=== PATIENT | female | born 1990 ===

== ENCOUNTER 2017-09-05 21:04 | Emergency (ER) | payer SELFPAY ==
[2017-09-05 21:13] VITALS: BP 129/90; RESP 16; O2SAT 100
[2017-09-05 21:16] VITALS: BMI 29.2
[2017-09-05 21:38] VITALS: PULSE 89; TEMP 98.9
[2017-09-05] MEDS ORDERED: Albuterol-Ipratrop 3 mg / 0.5 (3 ml) UD IH STA (21:44)
--- NOTE | 2017-09-05 21:48 | ED PDOC ---
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 Patient states discharge associated with "foul smell", and with suprapubic discomfort. Patient states she had an IUD placed in [employer] 4 years ago and is unsure if it has shifted. Patient also complaining of asthma exacerbation x 10 days; states little relief with inhaler. Denies fever, vomiting, chest pain, shortness of breath, palpitations, changes in bowel movements, dysuria, hematuria, vaginal bleeding. Patient states she has not been sexually active in >1 year. Past Medical History Reviewed: Historical Data, Nursing Documentation, Vital Signs Vital Signs: Last Vital Signs Temp 98.9 F 09/05/17 21:12 Pulse 89 09/05/17 21:12 Resp 16 09/05/17 21:12 BP 129/90 09/05/17 21:12 Pulse Ox 100 09/05/17 21:12 - Medical History PMH: No Chronic Diseases - Surgical History Surgical History: No Surg Hx - Family History Family History: States: No Known Family Hx - Home Medications Home Medications: Ambulatory Orders Medication Instructions Recorded Naproxen [Naprosyn] 500 mg PO Q12 PRN #20 tablet 09/05/17 predniSONE [Prednisone] 60 mg PO DAILY #12 tab 09/05/17 - Allergies Allergies/Adverse Reactions: Allergies Allergy/AdvReac Type Severity Reaction Status Date / Time No Known Allergies Allergy Verified 09/05/17 21:26 Review of Systems ROS Statement: Except As Marked, All Systems Reviewed And Found Negative Respiratory: Positive for: Cough, Wheezing Genitourinary Female: Positive for: Vaginal Discharge, Pelvic Pain Physical Exam - Reviewed Nursing Documentation Reviewed: Yes Vital Signs Reviewed: Yes - Physical Exam Appears: Positive for: Well, Non-toxic, No Acute Distress Head Exam: Positive for: ATRAUMATIC, NORMAL INSPECTION, NORMOCEPHALIC Skin: Positive for: Normal Color Eye Exam: Positive for: Normal appearance ENT: Positive for: Normal ENT Inspection Cardiovascular/Chest: Positive for: Regular Rate, Rhythm Respiratory: Positive for: Wheezing. Negative for: Accessory Muscle Use, Rhonchi, Respiratory Distress Gastrointestinal/Abdominal: Positive for: Bowel Sounds, Soft, Tenderness ( suprapubic) Pelvic Exam: Positive for: External Exam Normal, No Cerv. Motion Tender, Other ( clear, nonodorous discharge. IUD string noted from cervix. 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 Negative for: Active Bleeding, Blood, Cervicitis Back: Positive for: Normal Inspection Extremity: Positive for: Normal ROM Neurologic/Psych: Positive for: Alert, Oriented - Laboratory Results Urine POC: Negative Urine dip results: Positive for: Leukocyte Esterase - ECG O2 Sat by Pulse Oximetry: 100 - Progress ED Course And Treament: genital cultures, u/s, duoneb, prednisone EXAM: US Pelvis, Transvaginal CLINICAL HISTORY: 26 years old, female; Pain; Pelvic pain; Additional info: Pelvic pain, has iud TECHNIQUE: Real-time transvaginal pelvic ultrasound (complete) with image documentation. Transvaginal imaging was used for better evaluation of the endometrium and adnexa. COMPARISON: No relevant prior studies available. FINDINGS: Uterus/cervix: Retroverted uterus. Two uterine masses, larger measuring 2.8 x 1.9 x 3.1 cm. Endometrium: 0.8 cm in thickness. IUD in place. Right ovary: 3.1 x 2.0 x 3.6 cm anechoic lesion. Normal flow. Left ovary: No mass. Normal flow. Free fluid: No significant free fluid. IMPRESSION: 1. Probable fibroid uterus. 2. RIGHT ovarian cyst. 3. Incidental/non-acute findings are described above. Patient educated on findings, discharged with rx prednisone, naproxen. Advised follow up Acute Specialist 2-3 days. Return to ED for worsening/concerning symptoms. Disposition - Clinical Impression Clinical Impression: Uterine fibroid, Ovarian cyst, Asthma - Patient ED Disposition Is Patient to be Admitted: No Counseled Patient/Family Regarding: Studies Performed, Diagnosis, Need For Followup, Rx Given - Disposition [facility] Disposition: Routine/Home Disposition Time: 00:07 Condition: IMPROVED Prescriptions: Naproxen [Naprosyn] 500 mg PO Q12 PRN #20 tablet PRN Reason: Pain, Moderate (4-7) predniSONE [Prednisone] 60 mg PO DAILY #12 tab Instructions: Ovarian Cyst (ED), Uterine Fibroids (ED) Print Language: [id number]
[2017-09-05] MEDS ORDERED: Albuterol-Ipratrop 3 mg / 0.5 (3 ml) UD ONE (21:55)
[2017-09-05 23:23] LABS: RBC URINE 2 /hpf (0-3); URINE BILIRUBIN NEGATIVE (NEGATIVE); URINE BLOOD NEGATIVE (NEGATIVE); URINE COLOR YELLOW (YELLOW); URINE GLUCOSE (UA) NEG (Normal); URINE KETONE NEGATIVE (NEGATIVE); URINE LEUKOCYTE ESTERASE SMALL Leu/uL (Negative); URINE PROTEIN NEGATIVE (NEGATIVE); URINE UROBILINOGEN 0.2-1.0 mg/dL (0.2-1.0); WBC URINE 3 /hpf (0-5)
--- NOTE | 2017-09-06 11:51 | US ---
HISTORY: pelvic pain, has IUD COMPARISON: None available. TECHNIQUE: Real-time transvaginal ultrasound examination of the pelvis was performed. FINDINGS: UTERUS: Measures 7.6 x 3.9 x 5.4 cm. There is evidence of 2 hypoechoic posterior uterine body fibroids. Larger fibroid measures 2.8 x 1.8 by 3.1 centimeters. Smaller fibroid measures 2.2 x 1.2 x 2.1 centimeters. Remainder the uterine echogenicity is within normal limits. ENDOMETRIUM: Measures 8 mm in diameter. Endometrial cavity contains an intrauterine device. This appears to be in normal anatomic position. No focal fluid collections are seen in the endometrial canal. Minor amount of vascularity is seen inferiorly in the lower uterine canal region. CERVIX: No cervical abnormality identified. RIGHT OVARY: Measures 3.4 x 2.7 x 3.9 cm. Right ovary contains 3.1 x 2.0 x 3.6 centimeters simple cyst without internal echoes or mural nodularity. Normal flow. LEFT OVARY: Measures 2.5 x 1 x 1.5 cm. No solid mass. Normal flow. FREE FLUID: No significant free fluid noted. OTHER FINDINGS: None. IMPRESSION: Intrauterine device normal anatomic position. Simple right ovarian cyst. Two posterior uterine body fibroids. Clinical follow-up is suggested. This agrees with preliminary report provided by the on-call radiologist.
== END 2017-09-06 00:35 | disposition home or self-care (01) ==
LOC: H.ER 21:04
DX: D25.9 Leiomyoma of uterus, unspecified (principal); N83.201 Unspecified ovarian cyst, right side; J45.901 Unspecified asthma with (acute) exacerbation